=== PATIENT | female | born 2000 | race Caucasian/White ===

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

== ENCOUNTER 2022-01-01 09:26 | Emergency (ER) | payer OTHER, SELFPAY ==
[2022-01-01] VITALS (9 sets, daily range): BP systolic 108–133; BP diastolic 60–84; PULSE 69–84; RESP 15–26; TEMP 36.4; O2SAT 94–100; BMI 30.2
[2022-01-01 12:15] LABS: Add Manual Diff / Slide Review NO; Basophils Absolute Auto 100 /uL (0-100); Basophils Percent Auto 1.4 % (0-2); Eosinophils Absolute Auto 200 /uL (0-450); Eosinophils Percent Auto 5.4 % (2-4); Hematocrit 42.1 % (36-46); Hemoglobin 14.3 g/dL (12.0-16.0); Lymphocytes Absolute Auto 1600 /uL (1100-4500); Lymphocytes Percent Auto 38.5 % (25-40); Mean Corpuscular HGB Conc 33.9 % (30-36); Mean Corpuscular Hemoglobin 29.1 PG (26-34); Mean Corpuscular Volume 85.8 fL (80-100); Monocytes Absolute Auto 400 /uL (0-900); Monocytes Percent Auto 10.3 % (3-14); Neutrophils Absolute Auto 1900 /uL (1500-7000); Neutrophils Percent Auto 44.4 % (50-75); Platelet Count 249 X10^3/uL (150-400); Red Cell Distribution Width 12.7 % (11.6-14.8); White Blood Cell Count 4.3 X10^3/uL (4.5-11.0)
[2022-01-01 12:21] LABS: Alanine Aminotransferase 22 IU/L (<35); Albumin Globulin Ratio 1.4 (1.0-2.8); Alkaline Phosphatase 68 U/L (38-126); Aspartate Aminotransferase 28 IU/L (14-36); BUN Creatinine Ratio 25.8 (6-22); Bilirubin Total 0.5 mg/dL (0.2-1.3); Blood Urea Nitrogen 17 mg/dL (7-17); Calcium 9.4 mg/dL (8.4-10.2); Carbon Dioxide 22 mmol/L (22-32); Chloride 104 mmol/L (98-107); Estimated Glomerular Filt Rate > 60 mL/min (>60); Globulin 3.6 g/dL (1.7-4.1); Glucose 85 mg/dL (70-100); HEMOLYSIS < 15 (0-50); Potassium 4.2 mmol/L (3.4-5.1); Sodium 139 mmol/L (137-145); Total Protein 8.6 g/dL (6.3-8.2)
[2022-01-01] MEDS: ONDANSETRON 4 MG/2 ML INJ IV (13:01)
--- NOTE | 2022-01-01 13:32 | PC.NURSE ---
Pt reports abdominal pain, dizziness, N&V and blood tinged stool and emesis since Thursday. Pt reports recent scope on 12/17/21, with potential chron's, but not confirmed. Also reports a rash that began on her arms and feet on Thursday but has since resolved with benadryl. Pt reports unable to tolerate foods, however can tolerate fluid.
--- NOTE | 2022-01-01 13:37 | ED_ITS ---
HPI - GI Bleed General Chief complaint: GI Bleed Stated complaint: A lot of blood in stool, dizzy, nausea Time Seen by Provider: 01/01/22 13:31 Source: patient Mode of arrival: Ambulatory History of Present Illness HPI Narrative: 21-year-old female nonsmoker with history of newly diagnosed irritable bowel syndrome and likely Crohn's presents with her mother because of dizziness and lightheadedness. She is been having trouble for quite some time and had a CT demonstrating a nonspecific colitis and had recent endoscopy concerning for C rohn's. She was started on sulfasalazine and presents here because she was told by her primary care office to come see us. She gets dizzy upon standing and improves with rest. She denies chest pain or shortness of breath. She is had nausea with solids but is able to keep liquids down. She did have 1 episode where there was blood-tinged sputum. She has generalized, crampy and episodic abdominal pain and occasionally this is bloody. She has a referral in to see a pet store merchandiser but has not yet seen them. Related Data Home Medications Medication Instructions Recorded Confirmed pantoprazole 40 mg tablet,delayed 1 tab PO PRN PRN Acid Reflux 12/17/21 01/01/22 release Previous Rx's Medication Instructions Recorded sulfasalazine 500 mg tablet 0.5 g PO BID #60 tabs 12/17/21 dicyclomine 20 mg tablet 20 mg PO TID PRN pain #20 tabs 01/01/22 ondansetron 4 mg disintegrating 4 mg PO TID-QID PRN nausea and 01/01/22 tablet vomiting #10 tabs Allergies Allergy/AdvReac Type Severity Reaction Status Date / Time No Known Drug Allergies Allergy Verified 01/01/22 10:24 Review of Systems Review of Systems Narrative: GENERAL: See HPI HEENT: Denies sinus pain, ear pain, sore throat, difficulty swallowing, dizziness. RESPIRATORY: Denies dyspnea, cough, wheezing, hemoptysis, sputum. CARDIOVASCULAR: Denies chest pain, palpitations, orthopnea, edema, GASTROINTESTINAL: See HPI : Denies dysuria, frequency, incontinence, hematuria, urinary retention. MUSCULOSKELETAL: denies weakness, joint pain, or bony pain SKIN: Denies rash, skin lesions, or other NEUROLOGIC: Denies weakness, headache, numbness, change in speech, confusion, seizures, incoordination. PSYCHIATRIC: No concerning psychosocial issues. 12 point review of systems is negative except for those stated above Patient History Surgical History History of tonsillectomy Family History Father Diverticulitis Mother Diabetes mellitus Grandfather Stomach cancer Social History household members: family Smoking Status: Unknown if ever smoked alcohol intake: never substance use type: marijuana Smoking Status: Unknown if ever smoked alcohol intake frequency: holidays/special occasions only Substance Use Type: marijuana Exam Narrative Exam Narrative: GENERAL: [21] year old patient appears stated age. Well-developed patient, in mild distress. HEAD: Atraumatic. Normocephalic. EYES: Pupils equal round and reactive. Extraocular motions intact. No scleral icterus. No injection or drainage. ENT: Nose without bleeding, purulent drainage. Throat without erythema, tonsillar hypertrophy or exudate. Airway patent. NECK: Trachea midline. Non tender CARDIOVASCULAR: Regular rate and rhythm without murmurs, gallops, or rubs. RESPIRATORY: Clear to auscultation. Breath sounds equal bilaterally. No wheezes, rales, or rhonchi. GASTROINTESTINAL: Abdomen soft, non-tender, nondistended. EXTREMITIES: No edema or joint tenderness. BACK: Nontender without deformity or crepitance. No flank tenderness. NEURO: AOx3. SKIN: No rash or erythema of visible areas Initial Vital Signs Initial Vital Signs: Vital Signs Temperature 97.5 F L 01/01/22 10:24 Pulse Rate 84 01/01/22 10:24 Respiratory Rate 15 01/01/22 10:24 Blood Pressure 112/78 01/01/22 10:24 Pulse Oximetry 99 01/01/22 10:24 Oxygen Delivery Method 01/01/22 10:24 Course Orders Ordered: ED Orders 01/01/22 10:28 EKG-12 Lead Stat 01/01/22 11:45 Complete Blood Count AUTO DIFF Stat Comprehensive Metabolic Panel Stat 01/01/22 13:08 COVID19 -Nasal RAPID/Pre-Proc Stat Discontinued Medications Sodium Chloride (Normal Saline 0.9%) 1,000 mls @ 1,000 mls/hr IV BOLUS ONE Stop: 01/01/22 14:45 Last Infusion: 01/01/22 15:30 Dose: 0 mls/hr Documented By: Admin: 01/01/22 13:52 Dose: 1,000 mls/hr Documented By: CARLITO Ondansetron HCl (Ondansetron 4 Mg/2 Ml Inj) 4 mg IV NOW ONE Stop: 01/01/22 12:56 Last Admin: 01/01/22 13:01 Dose: 4 mg Documented By: CARLITO Ondansetron HCl (Ondansetron 4 Mg/2 Ml Inj) 4 mg IV NOW ONE Stop: 01/01/22 13:47 Last Admin: 01/01/22 13:52 Dose: Not Given Documented By: CARLITO Pantoprazole Sodium (Pantoprazole 40 Mg Vial) 40 mg IV NOW ONE Stop: 01/01/22 13:47 Last Admin: 01/01/22 13:53 Dose: 40 mg Documented By: CARLITO Reevaluation(s) Reevaluation #1: Patient feeling significant improvement after fluids Vital Signs Vital signs: Vital Signs - 8 hr 01/01/22 12:50 01/01/22 12:53 01/01/22 12:53 Pulse Rate 83 82 Respiratory Rate Blood Pressure 130/79 Pulse Oximetry 94 99 01/01/22 13:00 01/01/22 13:00 01/01/22 13:23 Pulse Rate 82 Respiratory Rate 24 Blood Pressure 133/84 125/76 Pulse Oximetry 99 01/01/22 13:23 01/01/22 13:30 01/01/22 13:30 Pulse Rate 69 75 Respiratory Rate 21 23 Blood Pressure 119/60 Pulse Oximetry 100 98 01/01/22 14:00 01/01/22 14:00 01/01/22 14:30 Pulse Rate 74 Respiratory Rate Blood Pressure 113/73 108/78 Pulse Oximetry 99 01/01/22 14:30 01/01/22 15:00 01/01/22 15:00 Pulse Rate 70 75 Respiratory Rate 21 26 H Blood Pressure 117/75 Pulse Oximetry 99 98 MDM - GI Bleed Lab Data Result diagrams: 01/01/22 11:45 01/01/22 11:45 Labs: Lab Results 01/01/22 01/01/22 01/01/22 Range/Units 11:45 11:45 13:08 WBC 4.3 L (4.5-11.0) X10^3/uL RBC 4.90 (4.0-5.2) X10^6/uL Hgb 14.3 (12.0-16.0) g/dL Hct 42.1 (36-46) % MCV 85.8 (80-100) fL MCH 29.1 (26-34) PG MCHC 33.9 (30-36) % RDW 12.7 (11.6-14.8) % Plt Count 249 (150-400) X10^3/uL Neut % (Auto) 44.4 L (50-75) % Lymph % (Auto) 38.5 (25-40) % Humphreys % (Auto) 10.3 (3-14) % Eos % (Auto) 5.4 H (2-4) % Baso % (Auto) 1.4 (0-2) % Neut # (Auto) 1900 (1398-9244) /uL Lymph # (Auto) 1600 (8595-4732) /uL Humphreys # (Auto) 400 (0-900) /uL Eos # (Auto) 200 (0-450) /uL Baso # (Auto) 100 (0-100) /uL Sodium 139 (137-145) mmol/L Potassium 4.2 (3.4-5.1) mmol/L Chloride 104 (98-107) mmol/L Carbon Dioxide 22 (22-32) mmol/L BUN 17 (7-17) mg/dL Creatinine 0.66 (0.52-1.04) mg/dL Estimated GFR > 60 (>60) mL/min BUN/Creatinine Ratio 25.8 H (6-22) Glucose 85 (70-100) mg/dL Calcium 9.4 (8.4-10.2) mg/dL Total Bilirubin 0.5 (0.2-1.3) mg/dL AST 28 (14-36) IU/L ALT 22 (<35) IU/L Alkaline Phosphatase 68 (38-126) U/L Total Protein 8.6 H (6.3-8.2) g/dL Albumin 5.0 (3.5-5.0) g/dL Globulin 3.6 (1.7-4.1) g/dL Albumin/Globulin Ratio 1.4 (1.0-2.8) SARS-CoV-2 (PCR) Negative (Negative) Point of Care Testing Test Results Negative Urine Dip Bedside Urine Glucose Negative Bedside Urine Bilirubin - Negative Bedside Urine Ketone - Negative Urine Specific [place] 1.015 Bedside Urine Occult Blood - Negative Bedside Urine pH 6.5 Bedside Urine Protein - Negative Bedside Urine Urobilinogen - Negative Bedside Urine Nitrite - Negative Bedside Urine Leukocytes - Negative Esterase MDM Narrative Medical decision making narrative: Multiple etiologies for patient's symptoms considered include, but not limited to: [Bowel obstruction versus kidney stone versus diverticulitis versus other Patient's symptoms improved over duration of stay with above-stated therapies. And seem most consistent with IBS History, physical exam, labs, imaging, and response to therapies have been reassuring. Findings and discharge diagnosis discussed with patient/family followed by verbalization of understanding Return precautions discussed with patient/family whom verbalize understanding. Pain has been well controlled and patient is tolerating oral hydration. Discharge Plan Departure Patient Disposition: Home Clinical Impression: Colitis Instructions: DI for Colitis Activity Restrictions/Additional Instructions: *You have been diagnosed with [abdominal pain and bloody diarrhea likely due to irritable bowel syndrome] * As we discussed your history and physical exam as well as labs and response to therapies are very reassuring. There is no evidence of any severe diagnoses that would require a specific or immediate intervention. *What to do: *Please continue to take your regular medications as directed. [x ] New medication prescriptions sent to your pharmacy: [[facility] ] *Please follow up with your primary care provider in 2-3 days, call for an appointment. Let them know you were seen in the Emergency Department and that we ask that you be seen in follow up. We will electronically transmit a record of today's note if your PCP is in our system *Please reach out to Dr. Butcher's office for follow up. Let them know you were seen in the emergency department and we want you seen in follow-up *Please consider a clear liquid diet for the next 24-48 hours and then slowly advance to regular as tolerated. Also, try to avoid alcohol, nicotine, caffeine, spicy, acidic or fatty foods as this may worsen your symptoms *If you do not have a primary care provider please contact the [facility] Resource line at [phone]. They will ask some questions about your medical history and help get you set up with a doctor in the community. *Return to Emergency Department if you should have any new, worsening or concerning symptoms, such as [fever greater than 101 F, shaking chills, worse daniel pain, persistent vomiting or other bothersome symptoms] Prescriptions: New ondansetron 4 mg tablet,disintegrating 4 mg PO TID-QID PRN (Reason: nausea and vomiting) Qty: 10 0RF dicyclomine 20 mg tablet 20 mg PO TID PRN (Reason: pain) Qty: 20 0RF No Action pantoprazole 40 mg tablet,delayed release (DR/EC) 1 tab PO PRN PRN (Reason: Acid Reflux) sulfasalazine 500 mg tablet 0.5 g PO BID Qty: 60 0RF Rx Instructions: give with food (meal/snack) Referrals: Stanley Butcher MD [Non-Staff] - Rohan Luther MD [Primary Care Provider] - Visit Report Forms: Patient Portal/API
[2022-01-01] MEDS: SODIUM CHLORIDE 0.9% 1,000 ML 1000 ML IV (13:52)
[2022-01-01] MEDS: PANTOPRAZOLE 40 MG VIAL IV (13:53)
[2022-01-01 13:58] LABS: COVID19 -Nasal RAPID Negative (Negative)
== END 2022-01-01 15:31 | disposition home or self-care (01) ==
PROVIDERS: Emergency Provider Emergency Medicine; PCP Family Medicine
DX: K52.9 Noninfective gastroenteritis and colitis, unspecified (principal); Z20.822 Contact with and (suspected) exposure to COVID-19
CPT/HCPCS: 36415; 80053; 81003; 81025; 85025; 87635; 93005; 93010; 96361; 96374; 96375; 99284; C9803; C9113; J2405